=== PATIENT | male | born 1950 ===

== ENCOUNTER → 2016-05-26 | Outpatient (CLI) | payer OTHER | LOC: BHFA 11:30 | PROVIDERS: ATTEND Internal Medicine Cardiovascular Disease | DX: R94.31 Abnormal electrocardiogram [ECG] [EKG] (principal) ==

== ENCOUNTER → 2016-05-30 | Outpatient (CLI) | payer OTHER ==
--- NOTE | 2016-05-30 16:14 | DX ---
Right Wrist, Four Views HISTORY: Wrist injury after fall with pain. FINDINGS: Normal mineralization. No evidence for acute fracture or dislocation. Mild degenerative charles nge is seen at the scaphoid trapezium articulation with joint narrowing and periarticular spurring. S evere degenerative change is seen at the first carpometacarpal joint with joint narrowing, subarticul ar sclerosis, and periarticular spurring. IMPRESSION: No evidence for acute fracture. Degenerative changes above.
== END ==
LOC: GIMAGING 15:20
PROVIDERS: ATTEND Nurse Practitioner Acute Care
DX: M25.531 Pain in right wrist (principal)
CPT/HCPCS: 73110-PO